=== PATIENT | male | born 1950 ===

== ENCOUNTER → 2020-05-29 06:41 | Outpatient (CLI) | payer OTHER | END | disposition home or self-care (01) | LOC: LAB 06:41 | PROVIDERS: ATTEND Urology | DX: R97.21 Rising PSA following treatment for malignant neoplasm of prostate (principal) ==

== ENCOUNTER 2020-05-29 07:15 | Outpatient (CLI) | payer OTHER | END 2020-05-29 14:07 | disposition home or self-care (01) | LOC: TOM 07:15 | PROVIDERS: ATTEND Urology | DX: R31.21 Asymptomatic microscopic hematuria (principal) ==